=== PATIENT | female | born 1950 | race Caucasian/White ===

== ENCOUNTER 2019-09-03 23:19 | Inpatient (IN) | payer OTHER, MEDICAID ==
[~2019-09-03] VITALS: Ht 162.6 cm; Wt 87.5 kg
[~2019-09-03 23:19] MED LIST: ASPIR 8181 MG PO; CALCIUM 600 +1 EAC1 PO; COZAAR 50 MG TA50 M1 PO; HYDROCHLOROTH12.5 M1 PO; IBUPROFEN 800800 M1 PO; IRON240 M1 PO; LOPRESSOR50 PO; MOBIC15 MG PO; NORVASC5 MG PO; OSTEO BI-FLEX1 EAC1 PO
[2019-09-03 23:40] VITALS: BP 168/58
[2019-09-03] MEDS ORDERED: TELMISARTAN40 MG PO (23:42)
[2019-09-03 23:56] LABS: URINE BILIRUBIN NEGATIVE (Negative); URINE BLOOD 2+ (Negative); URINE CLARITY CLEAR; URINE COLOR YELLOW; URINE GLUCOSE-RANDOM NEGATIVE (Negative); URINE KETONES TRACE (Negative); URINE LEUKOCYTES-REFLEX TRACE (Negative); URINE PROTEIN 1+ (Negative); URINE SPECIFIC GRAVITY 1.025 (1.005-1.030); URINE UROBILINOGEN 0.2 E.U./dl (0.2-1.0)
[2019-09-04] VITALS (9 sets, daily range): BP systolic 97–164; BP diastolic 37–91
[2019-09-04 00:07] LABS: URINE NITRITE-REFLEX POSITIVE (Negative)
[2019-09-04 00:14] LABS: CALCIUM 8.3 mg/dL (8.5-10.1); CREATININE 0.9 mg/dL (0.6-1.3); POTASSIUM 3.1 mmol/L (3.5-5.1)
[2019-09-04 00:16] LABS: HEMOGLOBIN 10.8 gm/dL (12.0-15.0); MCH 30.4 pg (26.0-34.0); MCHC 33.6 g/dL (28.0-37.0); MCV 90.4 fL (80.0-100.0); MPV 7.4 fl. (7.2-11.1); NUCLEATED RBCS 0 /100WBC; PLATELET COUNT* 284 thou/uL (150-400); RBC 3.54 mil/uL (4.20-5.00); RDW-CV 14.9 % (10.5-14.5)
[2019-09-04 00:18] LABS: ALBUMIN 3.1 g/dL (3.4-5.0); MAGNESIUM 1.9 mg/dL (1.8-2.4); TOTAL BILIRUBIN 0.4 mg/dL (<0.1-1.0); TOTAL PROTEIN 6.9 g/dL (6.4-8.2)
[2019-09-04 00:28] LABS: SQUAMOUS >10 Many /LPF (0-3)
[2019-09-04 00:29] LABS: CASTS None Seen /LPF (None Seen); URINE WBC-REFLEX >25 Many /HPF (0-5)
[2019-09-04 00:31] LABS: BACTERIA-REFLEX >30 Many /HPF (None Seen); URINE RBC 3-10 Few /HPF (0-2)
[2019-09-04 00:32] LABS: CRYSTALS None Seen /LPF (None Seen); YEAST-REFLEX Present (None Seen)
[2019-09-04 01:10] LABS: ABSOLUTE LYMPHOCYTES 0.3 thou/uL (0.8-5.3); ABSOLUTE MONOCYTES 0.3 thou/uL (0.0-1.2); ABSOLUTE NEUTROPHILS 15.4 thou/uL (1.6-8.1)
[2019-09-04 01:11] LABS: PLATELET ESTIMATE ADEQUATE
[2019-09-04 10:41] LABS: ABSOLUTE LYMPHOCYTES 0.9 thou/uL (0.8-5.3); ABSOLUTE MONOCYTES 0.7 thou/uL (0.0-1.2); ABSOLUTE NEUTROPHILS 13.5 thou/uL (1.6-8.1); BASOPHILS 0.2 %; HEMATOCRIT 34.1 % (37.0-47.0); HEMOGLOBIN 11.2 gm/dL (12.0-15.0); LYMPHOCYTES 5.9 %; MCH 30.8 pg (26.0-34.0); MCV 93.3 fL (80.0-100.0); MONOCYTES 4.8 %; MPV 7.2 fl. (7.2-11.1); NUCLEATED RBCS 0 /100WBC; PLATELET COUNT* 253 thou/uL (150-400); POLYS 89.1 %; RBC 3.65 mil/uL (4.20-5.00); RDW-CV 14.9 % (10.5-14.5); WBC 15.2 thou/uL (4.0-11.0)
[2019-09-04 10:57] LABS: CALCIUM 7.9 mg/dL (8.5-10.1); CREATININE 0.6 mg/dL (0.6-1.3)
--- NOTE | 2019-09-04 11:18 | NUR ---
ADMISSION PROCESS COMPLETED. BLADDER SCAN >530 MLS, PT NOT ABLE TO VOID. TRIANA'S CATH INSERTED. IV INSERTED IN LT FA, 20G. REPORT GIVEN TO MYA DONOVAN, TELE. NOTIFIED.
[2019-09-04 15:24] LABS: BE -1.1 mmol/L (-2 to +3); PCO2 31.3 mmHg (35.0-45.0); pH 7.464 (7.340-7.450)
[2019-09-04 15:26] LABS: PO2 55.2 mmHg (75.0-100.0)
--- NOTE | 2019-09-04 18:30 | NUR ---
PATIENT ARRIVED FROM ED, ALERT AND ORIENTED X4 BUT VERY SLEEPY AND LETHARGIC. ASSESSMENT COMPLETED AND CHARTED. PATIENT TACHY BUT VSS ON ROOOM AIR. FLUIDS INFUSED ORDERED. PATIENT UP STAND BY ASSIST TO BEDSIDE COMMODE. CALL LIGHT WITHIN REACH. HOURLY ROUNDS COMPLETED. WILL CONTINUE WITH PLAN OF CARE.
[2019-09-05 04:00] VITALS: BP 126/51
[2019-09-05 05:44] LABS: HEMATOCRIT 29.6 % (37.0-47.0); HEMOGLOBIN 9.9 gm/dL (12.0-15.0); MCH 30.7 pg (26.0-34.0); MCHC 33.5 g/dL (28.0-37.0); MCV 91.7 fL (80.0-100.0); MPV 7.8 fl. (7.2-11.1); RBC 3.23 mil/uL (4.20-5.00); RDW-CV 15.2 % (10.5-14.5); WBC 12.8 thou/uL (4.0-11.0)
[2019-09-05 06:10] LABS: ALBUMIN 2.2 g/dL (3.4-5.0); CREATININE 0.5 mg/dL (0.6-1.3); MAGNESIUM 1.9 mg/dL (1.8-2.4); POTASSIUM 3.5 mmol/L (3.5-5.1); TOTAL BILIRUBIN 0.4 mg/dL (<0.1-1.0); TOTAL PROTEIN 5.9 g/dL (6.4-8.2)
--- NOTE | 2019-09-05 06:32 | NUR ---
Received report from Flakita, pt having fever (given tylenol dayshift) Recheck at 2100, 99.6F. Around 0400, temp 101.2F, tylenol given, recheck at 0625 still 100.5F. Pt received zithromax as ordered. Pt nuñez cath draining well. Pt lethargic beginning of shift, orientation improved this morning. Family called, updated plan of care. Will continue to monitor.
[2019-09-05 08:15] VITALS: BP 144/72
--- NOTE | 2019-09-05 08:53 | EKG ---
[place] [address] ELECTROCARDIOGRAM REPORT Name: YOMONAUgo JIMÉNEZALVA Room: [address] ADM IN .R.#: [id number] Admission: 09/04/19 Attend Phys: Saige Boyer, Discharge: Date of : 52 Date of Service: 09/03/19 2334 Report #: [id number] THIS REPORT FOR: //name// [facility] Test Date: 2019-09-03 Test Time: 23:34:52 Pat Name: MONA RAM Department: Room: [facility] Gender: F [place] Hand: [place] : 1950 Requested By: Deidre Sheppard Order Number: [id number] Sen MD: Ricky Valerio Measurements Intervals [place] Rate: 107 P: 47 LA: 152 QRS: -6 QRSD: 93 T: 32 QT: 340 QTc: 454 Interpretive Statements Sinus tachycardia Minimal ST depression, lateral leads No previous ECG available for comparison Electronically Signed On 09-05-2019 8:52:50 CDT by Ricky Valerio [email or web address] <ELECTRONICALLY SIGNED> By: Ricky Valerio MD, [facility] 09/05/19 0852 [id number] Ricky Valerio MD, [facility] /EPI
--- NOTE | 2019-09-05 09:05 | NUR ---
TEMP 100.7 AXILLARY. ICE PACK APPLIED. TYLENOL ADMININSTERED PER EMAR. ANTIBIOTICS ADMINISTED PER EMAR. SPOKE TO PTS SPOKESPERSON, ALYSIA WITH AN UPDATE. DIET ADVANCE. PT TOLERATING CLEAR LIQUIDS. AWAKE, ALERT AND ORIENTED X'S 4.
--- NOTE | 2019-09-05 12:08 | NUR ---
NOTIFIED DR GUERRERO OF [facility] THIS SHIFT. AT 0816 TEMP 100.7. AFTER TYLENOL AND ANTIBIOTICS TEMP 102. AROUND 1100 TEMP STILL >100. ORDER IN FOR INFECTIOUS DISEASE CONSULT.
[2019-09-05 12:16] VITALS: BP 131/61
--- NOTE | 2019-09-05 18:21 | NUR ---
PT'S TEMP 99.7 THIS EVENING. PT MAX ASSIST TO BSC. HAD BM. PT SITTING IN RECLINER THIS EVENING.
[2019-09-05 20:35] VITALS: BP 114/75
[2019-09-06] VITALS: BP 148/74
[2019-09-06 04:00] VITALS: BP 163/66
[2019-09-06 04:33] LABS: HEMATOCRIT 28.8 % (37.0-47.0); MCH 31.2 pg (26.0-34.0); MCHC 34.6 g/dL (28.0-37.0); MCV 90.1 fL (80.0-100.0); MPV 7.5 fl. (7.2-11.1); RBC 3.2 mil/uL (4.20-5.00); RDW-CV 14.6 % (10.5-14.5)
[2019-09-06 05:11] LABS: CALCIUM 7.5 mg/dL (8.5-10.1); CREATININE 0.5 mg/dL (0.6-1.3); MAGNESIUM 1.8 mg/dL (1.8-2.4); POTASSIUM 3.1 mmol/L (3.5-5.1)
--- NOTE | 2019-09-06 07:05 | NUR ---
CHANGE OF SHIFT BEDSIDE REPORT GIVEN PATIENT SEEN AT BEDSIDE, IN BED ASLEEP ASSUMED PATIENT CARE
[2019-09-06 08:00] VITALS: BP 155/81
--- NOTE | 2019-09-06 08:00 | NUR ---
PT CARE ASSUMED AT 1930. SAT MAINTAINED IN O2. ALERT AND ORIENTED X4. DENIES PAIN AND SOB. CALL LIGHT WITHIN REACH AND BED IN LOW POSITION. HOURLY ROUNDING DONE FOR PT SAFETY.
[2019-09-06 11:30] VITALS: BP 150/68
[2019-09-06 16:00] VITALS: BP 152/68
--- NOTE | 2019-09-06 16:21 | NUR ---
SW met with pt and pt to complete initial assessment and discuss dc planning. Pt lives at home with and is usually stable in mobility and independent with ADLs. Pt has a cane. Pt is not normally on supplemental oxygen. Pt has hx of services but does not recall the name of the agency. No needs aniticpated at this time but SW/REGINA to remain available to assist with safe dc planning if needs arise.
[2019-09-06 20:00] VITALS: BP 157/68
[2019-09-07] VITALS: BP 122/53
[2019-09-07 04:00] VITALS: BP 126/44
--- NOTE | 2019-09-07 05:55 | NUR ---
ASSESSMENTS COMPLETED AT BEDSIDE, PLEASE REFER TO CHARTING FOR DETAILS. MEDICATIONS ADMINISTERED PER MAR. PT REPORTED NO PAIN OR DISCOMFORT, JUST STATED THAT SHE IS VERY TIRED. NO OTHER CONCERNS NOTED THIS SHIFT. CURRENTLY ASLEEP WITH BED ALARM ON AND CALL LIGHT WITHIN REACH.
[2019-09-07 08:00] VITALS: BP 155/70
[2019-09-07 12:19] VITALS: BP 160/76
[2019-09-07 16:53] VITALS: BP 143/58
--- NOTE | 2019-09-07 18:38 | NUR ---
VS CHARTED, A&OX4, NC@2L, MAX ASSIST PIVOT TO COMMODE AND CHAIR, TRIANA CATHETER FOR I&OS. HOURLY ROUNDING PERFORMED, POSSESSIONS AND CALL LIGHT WITHIN REACH.
[2019-09-07 20:00] VITALS: BP 172/85
[2019-09-08] VITALS: BP 169/77
[2019-09-08 04:00] VITALS: BP 122/54
--- NOTE | 2019-09-08 06:11 | NUR ---
ASSESSMENTS COMPLETED AT BEDSIDE, PLEASE SEE CHARTING FOR DETAILS. MEDICATIONS ADMINISTERED PER MAY. C/O PAIN TO LEFT KNEE, PRN MEDICATIONS ADMINISTERED WITH PARTIAL RELIEF, PT REQUESTED MEDICATION TO HELP WITH SLEEP, PRN GIVEN AND EFFECTIVE. NO OTHER CONCERNS NOTED AT THIS TIME. CURRENTLY IN BED SLEEPING WITH BED ALARM ON AND CALL LIGHT WITHIN REACH.
[2019-09-08 08:00] VITALS: BP 156/73
[2019-09-08 17:18] VITALS: BP 150/63
--- NOTE | 2019-09-08 18:50 | NUR ---
PT OUT OF BED FOR LUNCH, MOD ASSIST x1, STILL SITTING IN A RECLINER. TRIANA CONTD. LT LE ELEVATED WITH A PILLOW. VSS. MOTRIN GIVEN ONCE FOR RT KNEE PAIN, PARTIAL PAIN RELIEF ACHIEVED.
[2019-09-08 20:00] VITALS: BP 161/67
[2019-09-09] VITALS: BP 146/74
[2019-09-09 04:04] VITALS: BP 108/77
[2019-09-09 12:07] VITALS: BP 153/72
--- NOTE | 2019-09-09 14:56 | NUR ---
Per , Pt remains on 3 ivabxs. Therapies to see today. Plan [place]. Following.
[2019-09-09 15:55] VITALS: BP 151/69
--- NOTE | 2019-09-09 18:59 | NUR ---
PATINET RESTING IN CHAIR IN ROOM. VSS AND PATINET IN NO APPARNET SIGNS OF DISTRESS. TRIANA DISCONTINUED. IV FLUIDS AND ABX. HOURLY ROUNDING COMPLETED FOR PATINET SAFETY. EXPECTED DC TO HOME TOMORROW
[2019-09-09 20:00] VITALS: BP 176/74
[2019-09-10] VITALS: BP 134/53
[2019-09-10 04:00] VITALS: BP 176/84
[2019-09-10 05:00] VITALS: BP 138/62
[2019-09-10 05:12] LABS: ABSOLUTE EOSINOPHILS 0.7 thou/uL (0.0-0.7); ABSOLUTE LYMPHOCYTES 2.1 thou/uL (0.8-5.3); ABSOLUTE MONOCYTES 1.1 thou/uL (0.0-1.2); ABSOLUTE NEUTROPHILS 6.2 thou/uL (1.6-8.1); BASOPHILS 0.4 %; EOSINOPHILS 6.6 %; HEMATOCRIT 31.2 % (37.0-47.0); HEMOGLOBIN 10.6 gm/dL (12.0-15.0); LYMPHOCYTES 20.9 %; MCH 30.2 pg (26.0-34.0); MCHC 33.9 g/dL (28.0-37.0); MCV 89.1 fL (80.0-100.0); MONOCYTES 11.2 %; MPV 6.7 fl. (7.2-11.1); NUCLEATED RBCS 0 /100WBC; PLATELET COUNT* 421 thou/uL (150-400); POLYS 60.9 %; RDW-CV 14.4 % (10.5-14.5); WBC 10.2 thou/uL (4.0-11.0)
--- NOTE | 2019-09-10 07:53 | CON ---
[address] [address] CONSULTATION Name: MONA RAM Room: [address] IN M.R.#: [id number] Admission: 09/04/19 Attend Phys: Saige Boyer MD Discharge: Date of : 52 Report #: [id number] THIS REPORT FOR: //name// cc: Lima Liriano Tara DO ~ THIS REPORT FOR: //name// CC: Saige Liriano DATE OF SERVICE: 09/05/2019 INFECTIOUS DISEASE CONSULTATION ATTENDING PHYSICIAN: Dr. Boyer. REASON FOR EVALUATION: Febrile illness, likely has complicated urinary tract infection as well as pneumonitis. HISTORY OF PRESENT ILLNESS: Chart reviewed, patient examined. This is a 69-year-old without significant medical history who had onset of fairly profound spontaneous vomiting with associated diarrhea. On presentation, was febrile and progressively weak, states she could not really get out of bed. Brother had to help her and again they were abrupt in onset. She denies significant abdominal pain, initially was not dyspneic; however, now is on supplemental oxygen per nasal cannula. Initial screening for COVID was negative by 2 different assays. Urinalysis did show some pyuria. Urine culture now with growth of Klebsiella. Blood cultures are sterile thus far. Chest x-ray showed some mild interstitial infiltrates bilaterally. CT abdomen and pelvis showed no acute process. No calculus or hydronephrosis. Lactic acid was 0.6 initially. She was initiated on empiric therapy with azithromycin, ceftriaxone and fluconazole. She notes she is not significantly improved since her admission despite of resuscitation with some fluids. ALLERGIES: HYDROCODONE. MEDICATIONS: Include aspirin, ceftriaxone, fluconazole, azithromycin, ondansetron and diphenhydramine. PAST MEDICAL HISTORY: Includes hypertension, previous left knee replacement, previous hysterectomy. SOCIAL HISTORY: Nonsmoker, no ethanol, no illicit drug use. FAMILY HISTORY: [place] [address] CONSULTATION Name: MONA RAM Room: [address] IN [facility].#: [id number] Admission: 09/04/19 Attend Phys: Saige Boyer MD Discharge: Date of : 52 Report #: [id number] REVIEW OF SYSTEMS: As noted above. Does note bilateral lower extremity edema. Some recent dermatological evaluation due to inflammatory eruption. She has had a couple of biopsies. PHYSICAL EXAMINATION: GENERAL: She appears acutely ill, in moderate distress and somewhat undernourished. VITAL SIGNS: Temperature 101.6, pulse 111, respirations 20, blood pressure 131/61. SKIN: Warm, dry, no rashes. HEENT: Normocephalic. Extraocular muscles intact. NECK: Supple. LUNGS: Few scattered coarse breath sounds. HEART: Regular, may have soft systolic murmur. ABDOMEN: Soft, nontender. There are no peritoneal signs. EXTREMITIES: Bilateral lower extremities have I think some venous stasis insufficiency. There is inflammatory erythrodermic-type eruption, more so on the left, is warm to touch. There are no bullous lesions. There is question of a cellulitic process. GENITOURINARY: Deferred. RECTAL: Deferred. LABORATORY DATA: Urine cultures described above. Coronavirus x 2 with different assays both negative. Blood cultures sterile. Electrolytes: Sodium 138, potassium 3.5, chloride 106, bicarbonate is 21, anion gap of 11, BUN and creatinine 11 and 0.5, glucose of 82. AST of 22, albumin of 2.2, total protein of 5.9, estimated GFR 123. CBC: White count of 12.8, H and H 9.9 and 29.6, platelets of 217. ABGs: pH 7.464, pCO2 of 31.3 and pO2 of 55.2 on room air on admission. Lactic acid 0.6. CT abdomen and pelvis described above. ASSESSMENT AND PLAN: Febrile illness. Presentation was nausea, that was intractable, may well have complicated urinary tract infection and now has respiratory type signs and symptoms. She is COVID negative x 2, may well have a lower extremity inflammatory eruption with skin and soft tissue infection as well. We will adjust antimicrobial therapy at this point. She is quite tenuous. Continue supportive measures, ____ spirometry. We will await culture results. Monitor expectantly. <ELECTRONICALLY SIGNED> By: Jaime Feng MD 09/10/19 0753 [id number] 2100Jomarcial Feng MD /nt
[2019-09-10 08:00] VITALS: BP 148/88
--- NOTE | 2019-09-10 10:24 | NUR ---
WOUND NURSE: PATIENT SEEN TO ADDRESS LINEAR BULLA ON THE LEFT BUTTOCK AND MEASURING 2.5 X 1.5 X 0.1 CM. PRESENTS WITH PARTIAL THICKNESS TISSUE LOSS AND DRAINING MODERATE AMOUNT OF SEROUS DRAINAGE. THERE IS PINKISH RED NONGRANULATING TISSUE IN THE WOUND BED. THERE IS NO PERIWOUND REDNESS, WARMTH, OR INDURATION. CLEANSED WITH SOAP AND WATER, RINSED WITH WATER, THEN PATTED DRY. APPLIED SKIN PREP TO PERIWOUND TISSUE. APPLIED AQUACEL AG TO THE OPEN, DRAINING AREA, THEN COVERED WITH EXUDERM LP UNDER SURESITE TRANSPARENT DRESSING. ANTICIPATE DRESSING TO BE CHANGED EVERY 3 TO 5 DAYS AND PRN. PATIENT WAS INSTRUCTED ON Q 2 HOUR REPOSITIONING FROM SIDE TO SIDE AND ON NUTRIENT DENSE DIET WITH INCREASED PROTEIN, VITAMIN C, AND ZINC. PATIENT WAS ABLE TO TURN HERSELF DURING THIS ASSESSMENT, SO WAS INSTRUCTED ON THE IMPORTANCE IN DOING SO. PATIENT STATES SHE UNDERSTANDS.
--- NOTE | 2019-09-10 11:42 | NUR ---
Nutrition: Pt admitted with UTI. Seen for pressure ulcer on Lt buttock. Regular tordered. Noted that pt is on high protein diet with Zn and vit C, per nsg notes. Wt: 193#. BG WNL, alb 2.2, prealb 10.6 - severely low. RD ordered Con BID for added protein while in hospital. Increased nutrient need R/T wound healing AEB chart review. GOALS: Con BID, continue Zn, vit C. Otherwise, low nutrition risk.
[2019-09-10] MEDS ORDERED: AUGMENTIN 875-1 EACH PO (12:00)
[2019-09-10] MEDS ORDERED: PEPCID20 MG PO (12:00)
[2019-09-10] MEDS ORDERED: TYLENOL325 MG PO (12:00)
[2019-09-10 12:32] VITALS: BP 162/75
[2019-09-10 13:43] VITALS: BP 162/75
== END 2019-09-10 15:40 | disposition home or self-care (01) | DRG 871 ==
LOC: M.ERS 23:19 → M.TBA-ER 09-04 02:44 → M.ICU 09-04 05:09 → M.2W 09-04 05:09 → M.TBA-ER 09-04 05:09 → M.ICU 09-04 05:39 → M.2W 09-04 11:06
PROVIDERS: Emergency Medicine; Internal Medicine Infectious Disease; ADMIT Internal Medicine; ATTEND Internal Medicine
DX: A41.59 Other Gram-negative sepsis (principal); G92 Toxic encephalopathy; J18.9 Pneumonia, unspecified organism; N30.00 Acute cystitis without hematuria; L03.116 Cellulitis of left lower limb; Z16.11 Resistance to penicillins; I95.89 Other hypotension; E86.1 Hypovolemia; Z96.652 Presence of left artificial knee joint; Z96.642 Presence of left artificial hip joint; B96.1 Klebsiella pneumoniae [K. pneumoniae] as the cause of diseases classified elsewhere; R59.9 Enlarged lymph nodes, unspecified; I87.8 Other specified disorders of veins; Z20.828 Contact with and (suspected) exposure to other viral communicable diseases; I10 Essential (primary) hypertension; Z79.899 Other long term (current) drug therapy; Z79.82 Long term (current) use of aspirin; Z88.6 Allergy status to analgesic agent; Z88.5 Allergy status to narcotic agent; Z90.710 Acquired absence of both cervix and uterus